=== PATIENT | female | born 1965 | race Two or more races ===

== ENCOUNTER 2021-04-27 10:00 | Emergency (ER) | payer BC ==
[~2021-04-27] VITALS: Ht 152.4 cm; Wt 81.6 kg
[2021-04-27] MEDS ORDERED: ZESTRIL10 M1 PO (10:10)
== END 2021-04-27 12:54 | disposition home or self-care (01) ==
LOC: ER 10:00
DX: S93.601A Unspecified sprain of right foot, initial encounter (principal); X58.XXXA Exposure to other specified factors, initial encounter; Y92.511 Restaurant or cafe as the place of occurrence of the external cause; Y99.8 Other external cause status